=== PATIENT | male | born 1945 | race Caucasian/White ===

== ENCOUNTER → 2023-09-22 09:55 | Outpatient (REF) | payer MEDICARE, OTHER, SELFPAY ==
[2023-09-22 11:09] LABS: % Basophils 0.6 % (0-2); % Eosinophils 2.4 % (0-6); % Immature Granulocytes 0.2 % (0-0.5); % Neutrophils 57.8 % (42.2-75.2); Absolute Eosinophils 0.2 10^3/uL (0-0.7); Absolute Lymphocytes 1.9 10^3/uL (1.2-3.4); Absolute Monocytes 0.6 10^3/uL (0.1-0.6); Absolute Neutrophils 3.7 10^3/uL (1.4-6.5); Hematocrit 41.8 % (39.0-52.0); Hemoglobin 14.3 g/dL (13.0-18.0); Mean Corp Hgb Conc. 34.2 g/dL (33.0-37.0); Mean Corpuscular Hgb 30.1 pg (27.0-31.0); Mean Platelet Volume 10.9 fL (7.4-10.4); Nucleated Red Blood Cells % 0 % (-); Platelet Count 144 10^3/uL (130-400); Red Blood Cell Count 4.75 10^6/uL (4.70-6.10); Red Cell Dist. Width 11.9 % (11.5-14.5); White Blood Cell Count 6.3 10^3/uL (4.8-10.8)
[2023-09-22 11:28] LABS: Microalbumin, Random Urine 1.8 mg/dl (0.6-1.7)
[2023-09-22 11:52] LABS: ALT (SGPT) 20 U/L (0-50); AST (SGOT) 29 U/L (17-59); Albumin 4.4 g/dl (3.5-5.0); Alkaline Phosphatase 54 U/L (38-126); Blood Urea Nitrogen 26 mg/dl (9-20); Calcium 9.4 mg/dl (8.4-10.2); Carbon Dioxide 27 mmol/L (22-30); Chloride 105 mmol/L (98-107); Glucose 116 mg/dl (70-99); HDL Cholesterol 63 mg/dl; LDL Cholesterol, Calculated 30 mg/dl; Potassium 3.8 mmol/L (3.5-5.1); Sodium 143 mmol/L (135-145); Total Bilirubin 1.1 mg/dl (0.2-1.3); Total Cholesterol 111 mg/dl (50-199); Total Protein 6.8 g/dl (6.3-8.2); Triglyceride 90 mg/dl (10-149); Very Low Density Lipoprotein 18 mg/dl (0-30); eGFR > 60.00
[2023-09-22 13:07] LABS: Glycohemoglobin (HgbA1c) 6.4 % (4.0-5.6)
[2023-09-24 07:47] LABS: PSA Total 2.3 ng/mL (0.0-4.0)
== END ==
LOC: REG 09:55
PROVIDERS: ATTENDING PHYSICIAN Radiology Radiation Oncology; FAMILY PHYSICIAN Internal Medicine
DX: Z00.00 Encounter for general adult medical examination without abnormal findings (principal); I10 Essential (primary) hypertension; R73.09 Other abnormal glucose; R73.01 Impaired fasting glucose; R53.83 Other fatigue; C34.31 Malignant neoplasm of lower lobe, right bronchus or lung; E78.5 Hyperlipidemia, unspecified; N40.0 Benign prostatic hyperplasia without lower urinary tract symptoms
CPT/HCPCS: 36415; 71250; 80053; 80061; 82043; 83036; 84153; 84154; 84443; 85025

== ENCOUNTER → 2024-08-25 10:06 | Outpatient (REF) | payer MEDICARE, OTHER, SELFPAY | LOC: RCS 10:06 | PROVIDERS: ATTENDING PHYSICIAN Internal Medicine Cardiovascular Disease; FAMILY PHYSICIAN Internal Medicine | DX: I77.810 Thoracic aortic ectasia (principal); I34.0 Nonrheumatic mitral (valve) insufficiency | CPT/HCPCS: 93306 ==

== ENCOUNTER → 2024-10-05 13:02 | Outpatient (REF) | payer MEDICARE, OTHER, SELFPAY ==
[2024-10-05 14:55] LABS: PSA, Total - Diagnostic 1.77 ng/ml (0.0-4.0)
== END ==
LOC: REG 13:02
PROVIDERS: ATTENDING PHYSICIAN Specialist
DX: R97.20 Elevated prostate specific antigen [PSA] (principal)
CPT/HCPCS: 36415; 84153

== ENCOUNTER → 2025-04-05 12:39 | Outpatient (REF) | payer MEDICARE, OTHER, SELFPAY | LOC: RAD 12:39 | PROVIDERS: ATTENDING PHYSICIAN Radiology Radiation Oncology; FAMILY PHYSICIAN Internal Medicine; REFERRING PHYSICIAN Internal Medicine Cardiovascular Disease | DX: M79.662 Pain in left lower leg (principal); C34.31 Malignant neoplasm of lower lobe, right bronchus or lung | CPT/HCPCS: 71250; 93971 ==